=== PATIENT | female | born 1955 | race Caucasian/White ===

== ENCOUNTER 2023-10-20 16:59 | Emergency (ER) | payer MEDICARE, SELFPAY ==
[2023-10-20 17:01] VITALS: BP 215/89
[2023-10-20 17:44] VITALS: BP 203/80
[2023-10-20 18:04] VITALS: BP 197/79
[2023-10-20 18:12] LABS: % Basophils 0.6 % (0-2); % Eosinophils 1.5 % (0-6); % Immature Granulocytes 0.2 % (0-0.5); % Monocytes 7.5 % (1.7-9.3); % Neutrophils 67.2 % (42.2-75.2); Absolute Basophils 0.1 10^3/uL (0-0.2); Absolute Eosinophils 0.1 10^3/uL (0-0.7); Absolute Lymphocytes 2.1 10^3/uL (1.2-3.4); Absolute Monocytes 0.7 10^3/uL (0.1-0.6); Absolute Neutrophils 6.3 10^3/uL (1.4-6.5); Hematocrit 36.2 % (37.0-47.0); Hemoglobin 12.3 g/dL (12.0-16.0); Mean Corpuscular Hgb 25.1 pg (27.0-31.0); Mean Corpuscular Volume 73.9 fL (81.0-99.0); Mean Platelet Volume 8.8 fL (7.4-10.4); Nucleated Red Blood Cells % 0 %; Platelet Count 257 10^3/uL (130-400); Red Cell Dist. Width 15.7 % (11.5-14.5); White Blood Cell Count 9.3 10^3/uL (4.8-10.8)
[2023-10-20 18:13] LABS: Urine Albumin Negative (Neg - Trace); Urine Bilirubin Negative (Negative); Urine Character Clear (Clear); Urine Color Yellow; Urine Glucose Negative (Negative); Urine Ketone Negative (Negative); Urine Leukocyte Negative (Negative); Urine Nitrite Negative (Negative); Urine Occult Blood Negative (Negative); Urine Specific Gravity 1.015 (<1.030); Urine Urobilinogen Negative (Neg - 1+)
[2023-10-20 18:28] LABS: ALT (SGPT) 33 U/L (0-35); AST (SGOT) 31 U/L (14-36); Albumin 4.4 g/dl (3.5-5.0); Alkaline Phosphatase 169 U/L (38-126); Blood Urea Nitrogen 8 mg/dl (7-17); Calcium 10.6 mg/dl (8.4-10.2); Carbon Dioxide 20 mmol/L (22-30); Chloride 100 mmol/L (98-107); Estimated Creatinine Clearance 77 ml/min; Glucose 96 mg/dl (70-99); Potassium 4.1 mmol/L (3.5-5.1); Sodium 130 mmol/L (135-145); Total Bilirubin 0.6 mg/dl (0.2-1.3); Total Protein 7.5 g/dl (6.3-8.2); eGFR > 60.00
[2023-10-20 19:04] VITALS: BP 196/84
[2023-10-20] MEDS: APRESOLINE 10 MG IV (19:19)
--- NOTE | 2023-10-20 19:24 | ED.GENMED ---
History of Present Illness
General
Chief Complaint: Blood Pressure Problem
Source: patient and physician
Time Seen by Provider: 10/20/23 19:01
Travel History
Have you had any contact with someone who has COVID-19?: No
Do you have any symptoms of coronavirus? Fever > 100 degrees, chills, cough, shortness of breath, sore throat, loss of taste or smell, muscle aches, or headache?: No
History of Present Illness
History of Present Illness:
68-year-old female with past medical history of hypertension, hyperlipidemia and hypothyroidism presenting to the emergency department for evaluation at the request of her primary care provider for elevated blood pressure and headache. Patient
states that she was feeling 'off' at home and felt as if her blood pressure was elevated so called her primary care provider to make an appointment and was found to be hypertensive so sent to the ER with concern for hypertensive urgency. Patient
states that she has been readily compliant with her lisinopril and amlodipine and believes that her elevated blood pressure is related to stress as she states her 2 weeks ago. She denies any visual disturbances, focal weakness
or numbness, chest pain, shortness of breath, vomiting or any other symptoms.
Past History
Past History
ED Past Medical History: HTN, Hypercholesterolemia and Hypothyroidism
ED Past Surgical History: Appendectomy and Orthopedic (R knee arthroscopy)
Social History
Tobacco: Non-smoker
Alcohol: None
Drug: None
Personal:
Living: with family
Review of Systems
Review of Systems
All Other Systems: ROS reviewed and negative except as documented in HPI and ROS
Phy Exam
Physical Exam
Physical Exam:
GENERAL: Alert , in no apparent distress
EYE: conjunctiva clear
NECK: Supple
ENT: o/p clr, mmm.
CARDIAC: Regular rate and rhythm, no murmur
LUNGS: Clear breath sounds bilaterally, no acute respiratory distress, no wheezes/rales/rhonchi
NEUROLOGICAL: Alert and oriented, moves all extremities, no focal deficits
SKIN: Warm and dry, skin intact.
MUSCULOSKELETAL: well perfused.
PSYCH: Normal and appropriate interaction.
Scores
Heart Failure Risk
Heart Failure Risk Score: Not Applicable
Heart Score for Chest Pain Patients
STEMI patient?: Not applicable
Withdrawal Assessment of Alcohol
Withdrawal Assessment Completed?: Not applicable
Course
Orders/Labs/Results
Orders:
Orders
10/20/23 17:49
Electrocardiogram (*1) Urgent
Reason for Study: Hypertension, Benign
EKG- Treatment ONCE
10/20/23 18:00
Complete Blood Count/With Diff Urgent
Comprehensive Metabolic Panel Urgent
Urinalysis Reflex To Culture Urgent
Date Specimen was Collected: 10/20/23
Time Specimen was Collected: 17:49
10/20/23 18:07
CT Head W/o Iv Contrast Urgent
Comment:
Reason For Exam: headache, hypertensive
10/20/23 19:11
HydrALAZINE [Apresoline] 10 mg IV NOW STA
Abnormal Lab Results
10/20/23
18:00
Hct 36.2 L %
(37.0-47.0)
MCV 73.9 L fL
(81.0-99.0)
MCH 25.1 L pg
(27.0-31.0)
RDW 15.7 H %
(11.5-14.5)
Absolute Monos (auto) 0.7 H 10^3/uL
(0.1-0.6)
Sodium 130 L mmol/L
(135-145)
Carbon Dioxide 20 L mmol/L
(22-30)
Calcium 10.6 H mg/dl
(8.4-10.2)
Alkaline Phosphatase 169 H U/L
(38-126)
10/20/23 18:00
10/20/23 18:00
Vital Signs
Initial and Last Documented VS:
Initial Vital Signs
Temp Pulse Resp BP Pulse Ox
97.9 F 79 17 215/89 98
10/20/23 17:01 10/20/23 17:01 10/20/23 17:01 10/20/23 17:01 10/20/23 17:01
Last Documented Vital Signs
Temp Pulse Resp BP Pulse Ox
97.9 F 59 15 184/68 97
10/20/23 17:01 10/20/23 21:00 10/20/23 21:00 10/20/23 20:00 10/20/23 21:19
MDM/Problems Addressed
Differential Diagnosis Includes:
Hypertensive urgency, hypertensive emergency, uncontrolled chronic hypertension
MDM/Problems Addressed:
68-year-old female presenting emergency department at the request of primary care provider with concern for hypertensive urgency. Blood pressure in triage noted to have a systolic pressure greater than 200. Lab work, EKG and head CT were ordered.
On multiple rechecks patient's blood pressure remains elevated although less than 200 systolically at time of my exam. Will treat with hydralazine. Considered labetalol however given patient's already low heart rate in the 60s I did not feel
comfortable giving this medication. Patient agrees with plan. Will continue to monitor. Reassessment following meds.
Chronic conditions affecting care: HTN
Acute Exacerbation and/or Progression of Chronic Illness: HTN
*Radiology
Radiology exam reviewed: radiology read reviewed
*Pulse Oximetry
Patient hypoxic: no
*EKG
Interpreted by ED Provider?: Yes
Heart Rate: 65
Rate: normal
Rhythm: sinus
[place]: normal axis
Ischemia: no ischemia
*Acid Adjuster Interpretation
Rate: normal
Rhythm: sinus
*Critical Care Note
Total Time (30-74mins, 75-104mins- exclusive of procedures): Not Applicable
Patient Management
Discussion with other providers: PCP
Escalation/DeEscalation of care consider admission/obs:
On multiple reevaluations patient blood pressure is still elevated however improved from initial presentation as well as at her primary care. I notified patient's primary care provider of the workup findings here and patient's current blood
pressure as well as she is asymptomatic and primary care provider will follow-up with the patient tomorrow. Patient feels comfortable being discharged home. Aware of return precautions emergency department.
ED Attending Note
-
Portions of this chart may have been created with voice recognition software.� Occasional wrong word or��sound alike� substitutions may have occurred due to the inherent limitations of voice recognition software.
Discharge Plan
Departure
Patient Disposition: Home (Routine Discharge)
Date of Disposition: 10/20/23
Time of Disposition: 20:57
Patient with high blood pressure during this ER visit?: Yes
Discharge Problem:
Hypertension
Instructions: High Blood Pressure (DC)
Prescriptions:
No Action
metronidazole [MetroCream] 0.75 % cream
1 applic topical DAILY
varenicline [Chantix Starting Month ] 1 DOSE-PACK tablets,dose pack
1 dose PO
Patient Comments:
as directed
levothyroxine [Synthroid] 137 MCG tablet
137 mcg PO DAILY
aspirin 81 MG tablet,delayed release (DR/EC)
81 mg PO DAILY
aspirin 325 MG tablet,delayed release (DR/EC)
325 mg PO CATH
lisinopril 5 MG tablet
5 mg PO DAILY
prednisone 20 MG tablet
40 mg PO DAILY Qty: 10 0RF
Referrals:
Molly Sexton MD [Family Provider] -
Interventions
Interventions:
*Risk Screen - Suicide Last Done: 10/20/23 17:01
*General Assessment Last Done: 10/20/23 17:01
*Neglect/Abuse Screening Last Done: 10/20/23 17:01
ED- Fall Risk Assessment Last Done: 10/20/23 21:19
*ED COVID-19 Vaccine History Last Done: 10/20/23 17:01
*Nursing Disposition Last Done: 10/20/23 21:19
ED- Cardiac Assessment Last Done: 10/20/23 17:47
ED- Neurological Assessment Last Done: 10/20/23 17:47
ED- Pulmonary Assessment Last Done: 10/20/23 17:47
Discharge Date and Time
Discharge Date/Time: 10/20/23 21:19
Print Language: ALBAN[place]
[2023-10-20 19:50] VITALS: BP 188/71
[2023-10-20 20:00] VITALS: BP 184/68
== END 2023-10-20 21:19 | disposition home or self-care (01) ==
LOC: EMR 16:59
PROVIDERS: Emergency Medicine; EMERGENCY PHYSICIAN Emergency Medicine; FAMILY PHYSICIAN Family Medicine
DX: I10 Essential (primary) hypertension (principal); E78.00 Pure hypercholesterolemia, unspecified; E03.9 Hypothyroidism, unspecified
CPT/HCPCS: 99285; 96374; 70450; 80053; 81003; 85025; 93005